=== PATIENT | female | born 1935 | race Caucasian/White ===

== ENCOUNTER 2016-08-11 10:47 | Emergency (ER) | payer MEDICARE, BC ==
--- NOTE | ~2016-08-11 | ER ---
PATIENT'S NAME: RUBI OLSON [facility] AGE: 80 Y [address] ROOM: [place] [address] LOCATION: [facility] ADMIT DATE: 08/11/2016 ER/Outpatient Report DISCHARGE DATE: 08/11/2016 FAMILY PHYSICIAN: Kelly Fung MD ATTENDING PHYSICIAN: Carloz De Luna Time of arrival: 1047 hours. Time of Evaluation: 1049 hours. CHIEF COMPLAINT: Right arm pain. HISTORY OF PRESENT ILLNESS: The patient is a 80-year-old female who presents to the emergency department today with a chief complaint of right arm pain. She reports this occurred just prior to arrival about 25 minutes ago. She reports she tripped while walking on her deck and fell backwards and caught herself on her right outstretched arm. She heard a pop. She has mild sharp pain, which is worse with movement. She is unsure whether she had a head injury. She denies any loss of consciousness though. Denies any headache. No nausea or vomiting. No neck pain. PAST MEDICAL HISTORY: None. PAST SURGICAL HISTORY: Bilateral knee, back. SOCIAL HISTORY: The patient denies any tobacco use. Reports occasional alcohol use. Denies any illicit drug use. ALLERGIES: NO KNOWN DRUG ALLERGIES. MEDICATIONS: Flonase. PRIMARY CARE DOCTOR: Dr. Gifford. ORTHOPEDIC SURGEON: Dr. Peace. REVIEW OF SYSTEMS: PATIENT'S NAME: RUBI OLSON [facility] AGE: 80 Y [address] ROOM: [place] [address] LOCATION: [facility] ADMIT DATE: 08/11/2016 ER/Outpatient Report DISCHARGE DATE: 08/11/2016 FAMILY PHYSICIAN: Kelly Fung MD ATTENDING PHYSICIAN: Carloz De Luna All systems are reviewed by myself and negative with the exception of those discussed in HPI and past medical history. PHYSICAL EXAMINATION: VITAL SIGNS: Weight 78.7 kg, blood pressure 171/79, pulse 74, respiratory rate 22, temperature 97.9, oxygen saturation 100% on room air. GENERAL: The patient is a 80-year-old female, appears stated age, in obvious acute distress secondary to pain in her right wrist. HEENT: Head normocephalic, atraumatic. Pupils are equal, round, and reactive to light and accommodation. Extraocular motions are intact. Nares are patent bilaterally. TMs are clear. No hemotympanum. No Castro sign. No raccoon eyes. Oropharynx is clear. There are no lacerations noted. NECK: Supple. There is no nuchal rigidity. No midline tenderness to palpation. No step-offs or deformities. CARDIOVASCULAR: Regular rate and rhythm. No murmurs, rubs, or gallops. LUNGS: Clear to auscultation bilaterally. No wheezes, rales, or rhonchi. ABDOMEN: Soft, nontender, and nondistended. No rebound, rigidity, or guarding. MUSCULOSKELETAL: The patient moves all 4 extremities. The patient has decreased range of motion right wrist with obvious deformity noted. She does have 2/4 pulse radially in the right wrist. She does have dinner fork type deformity. Sensation is intact. Motor is intact in fingers. SKIN: Warm and dry. LABORATORY DATA AND X-RAYS: X-ray of the right wrist is obtained. X-ray does reveal an impacted Colles fracture of the distal radius. IMPRESSION: 1. Acute closed impacted Colles fracture of the right arm. 2. Status post moderate sedation with closed reduction. 3. Initial visit. EMERGENCY DEPARTMENT COURSE: The patient was brought back to the examination room. Seen and evaluated by myself. IV is established. Imaging is obtained as described above. The patient is given Dilaudid 0.25 mg IV x2 for pain. Consent is obtained both verbal and written for closed reduction with moderate sedation of the right wrist. Risks and benefits are discussed. The patient does wish to proceed. The patient is set up for conscious sedation as normally provided including IV monitoring and O2. The patient was given 80 mg of ketamine IV with good sedation. The right wrist was reduced with accentuation of the fracture and traction. A sugar-tong splint was placed by myself. This was well-padded. The patient's cap refill remains intact. There were no complications with the procedure. The patient was placed in a sling. Post reduction, a film was PATIENT'S NAME: RUBI OLSON [facility] AGE: 80 Y [address] ROOM: [place] [address] LOCATION: [facility] ADMIT DATE: 08/11/2016 ER/Outpatient Report DISCHARGE DATE: 08/11/2016 FAMILY PHYSICIAN: Kelly Fung MD ATTENDING PHYSICIAN: Carloz De Luna obtained with improved alignment of the patient's wrist. I have discussed the case with Dr. Peace who was requested by the patient. He will follow up with the patient on August 16 in the morning. I have written a prescription for [place] with sedation warning. I have discussed head injury precautions with the patient and the family. I have discussed return to care instructions including worsening symptoms, nausea, vomiting, lethargy, or other concerns to return immediately to the emergency department. They are agreeable without further questions. DISPOSITION: The patient is discharged home in good condition. CARLOZ DE LUNA DO KJR/modl /[id number] d: 08/11/16 2155 t: 08/13/16 0708, OUTPATIENT REPORT
[~2016-08-11 10:47] MED LIST changes: -BIOTIN1000 MCG PO; -GLUCOSAMINE CH1 EAC3 PO; -NORCO 5-325 TA1 EACH PO; -SYSTANE BALANCE10 ML OPHTH; -ULTRAM50 MG PO
[2016-08-16] MEDS ORDERED: BIOTIN1000 MCG PO (11:39)
[2016-08-16] MEDS ORDERED: GLUCOSAMINE CH1 EAC3 PO (11:40)
[2016-08-16] MEDS ORDERED: SUPHEDRINE PE10 MG PO (11:41)
[2016-08-16] MEDS ORDERED: SYSTANE BALANCE10 ML OPHTH (11:42)
[2016-08-16] MEDS ORDERED: NORCO 5-325 TA1 EACH PO (14:15)
[2016-08-16] MEDS ORDERED: ULTRAM50 MG PO (14:16)
== END 2016-08-11 14:02 | disposition disaster alternative care site (69) ==
LOC: GACC 10:47
PROC: 0PSHXZZ Reposition Right Radius, External Approach (ICD-10-PCS; principal; 2016-08-11)
DX: S52.531A Colles' fracture of right radius, initial encounter for closed fracture (principal); Z98.890 Other specified postprocedural states; Z79.82 Long term (current) use of aspirin; Z79.899 Other long term (current) drug therapy; W01.0XXA Fall on same level from slipping, tripping and stumbling without subsequent striking against object, initial encounter
CPT/HCPCS: J1170; J7030

== ENCOUNTER → 2016-08-11 | Outpatient (CLI) | payer MEDICARE, BC ==
[~2016-08-11] MED LIST: ALEVE220 MG PO; ASPIRIN EC81 MG PO; BIOTIN1000 MCG PO; BIOTIN800 MCG PO; CALCIUM 600 +1 EAC3 PO; COLACE100 MG PO; DILAUDID 2MG(HYD2 MG PO; DILAUDID2 MG PO; FLEXERIL10 MG PO; FLONASE 50 MCG/16 GM NOSE; FOSAMAX70 MG PO; GLUCOSAMINE CH1 EAC3 PO; LUBRICANT EYE D10 ML OPHTH; MIRALAX17 GM PO; MULTI VITAMIN1 EACH PO; NORCO 5-325 MG1 TAB PO; NORCO 5-325 TA1 EACH PO; OSTEO BI-FLEX1 EAC1 PO; PEPCID20 MG PO; PROLIA60 MG/ML IM; SUPHEDRINE PE10 MG PO; SYSTANE BALANCE10 ML OPHTH; TYLENOL EXTRA500 MG PO; ULTRAM50 MG PO; VALIUM5 MG PO; XARELTO10 MG PO; ZINC50 M1 PO
== END | disposition disaster alternative care site (69) ==
LOC: GAMB 10:25
DX: M21.931 Unspecified acquired deformity of right forearm (principal); M79.89 Other specified soft tissue disorders; M25.531 Pain in right wrist; M79.601 Pain in right arm; Z96.653 Presence of artificial knee joint, bilateral; Z79.899 Other long term (current) drug therapy
CPT/HCPCS: A0425; A0427; J2405; J3010

== ENCOUNTER → 2016-08-16 | Day surgery (SDC) | payer MEDICARE, BC ==
[~2016-08-16] VITALS: Ht 165.1 cm; Wt 76.3 kg
[~2016-08-16] MED LIST changes: +BIOTIN1000 MCG PO; +GLUCOSAMINE CH1 EAC3 PO; +NORCO 5-325 TA1 EACH PO; +SYSTANE BALANCE10 ML OPHTH; +ULTRAM50 MG PO
--- NOTE | ~2016-08-16 | OR ---
PATIENT'S NAME: RUBI OLSON [facility] AGE: 80 Y [address] ROOM: [place] [address] [place] [facility] [place] DATE: 08/16/2016 OR/Procedure Report DISCHARGE DATE: FAMILY PHYSICIAN: Kelly Fung MD ATTENDING PHYSICIAN: COLTON FROST SURGEON: Colton Frost MD CHILDREN'S ATTENDANT: Sergio Keene, HOISTING ENGINEER/POSTPARTUM NURSE. DATE OF PROCEDURE: 08/16/2016 PREOPERATIVE DIAGNOSIS: Right distal radius fracture. POSTOPERATIVE DIAGNOSIS: Right distal radius fracture. PROCEDURE PERFORMED: Closed reduction of right distal radius fracture with application of sugar-tong splint. ANESTHESIA: Propofol. COMPLICATIONS: None. INDICATION FOR PROCEDURE: Please refer to my separately dictated clinic note from today. Informed consent granted. The patient and her family members understand that repeat reduction (and potential internal fixation) may be necessary if satisfactory alignment cannot be achieved and/or maintained. DESCRIPTION OF PROCEDURE: Propofol anesthesia was administered with the patient positioned supine in the preoperative holding area. The sugar-tong splint was removed from the right upper extremity. Skin is intact throughout the right upper extremity. There was moderate swelling at the right wrist. Radial pulse 2+. There was no swelling or deformity at the forearm or elbow. The fracture was reduced via slight hyperextension and radial deviation at the fracture site followed by longitudinal traction followed by volar translation of the distal fragment combined with volar flexion and ulnar translation. Postreduction radiographs demonstrated voodoo of approximately 10 degrees of volar tilt and 20 degrees of inclination. There was no articular incongruity. There was approximately 2 mm of residual radial translation of the distal fragment relative to the proximal fragment. The distal radial ulnar joint demonstrated no widening. The distal ulna was intact. A well-padded well-molded sugar-tong splint was applied with the wrist volar flexed and ulnarly deviated. The splint was allowed to harden after which repeat AP, lateral, and oblique radiographs of the wrist demonstrated maintenance of excellent alignment. Specifically, there was no residual apex volar angulation or dorsal translation of the distal fragment. PATIENT'S NAME: RUBI OLSON [facility] AGE: 80 Y [address] ROOM: [place] [address] [place] [facility] [place] DATE: 08/16/2016 OR/Procedure Report DISCHARGE DATE: FAMILY PHYSICIAN: Kelly Fung MD ATTENDING PHYSICIAN: COLTON FROST Postoperative Plan: 1. She will remain in the sugar-tong splint for 2 weeks. 2. Repeat radiographs will be obtained through the splint next week. 3. Sling full-time. 4. I have asked to be contacted if analgesia is inadequate and/or if she develops numbness or paresthesias. MD GURJIT AYERS/marcus /[id number] d: 08/17/16 0036 t: 08/20/16 214, OPERATIVE SUMMARY
[2016-08-16 14:39] LABS: BASOPHIL % 0.7 %; EOSINOPHIL # 0.2 K/uL (0.0-0.5); EOSINOPHIL % 3.7 %; IMMATURE GRANULOCYTE % 0.2 %; LYMPHOCYTE % 34.4 %; MCH 32.8 pg (27.0-34.0); MCHC 34.2 gm/dL (32.0-36.5); MONOCYTE # 0.5 K/uL (0.0-1.0); MONOCYTE % 8.6 %; MPV 9.8 fl (9.4-12.4); NEUTROPHIL # (ANC) 3.1 K/uL (1.8-7.8); NEUTROPHIL % 52.4 %; NRBC % 0 /100WBC (0-0.00); PLATELET COUNT 218 K/uL (150-450); RBC 3.96 M/uL (3.50-5.50); RDW-CV 13.9 % (11.9-14.6); WBC 5.9 K/uL (4.0-11.0)
== END | disposition disaster alternative care site (69) ==
LOC: GPOC 11:00 → GSDC 13:29
PROVIDERS: Orthopaedic Surgery
PROC: 0PSHXZZ Reposition Right Radius, External Approach (ICD-10-PCS; principal; 2016-08-16)
DX: S52.531A Colles' fracture of right radius, initial encounter for closed fracture (principal); M19.90 Unspecified osteoarthritis, unspecified site; M81.0 Age-related osteoporosis without current pathological fracture; K21.9 Gastro-esophageal reflux disease without esophagitis; Z85.828 Personal history of other malignant neoplasm of skin; Z98.41 Cataract extraction status, right eye; Z98.42 Cataract extraction status, left eye; Z98.890 Other specified postprocedural states; Z90.710 Acquired absence of both cervix and uterus; Z79.82 Long term (current) use of aspirin; Z79.891 Long term (current) use of opiate analgesic; Z79.899 Other long term (current) drug therapy; W01.0XXA Fall on same level from slipping, tripping and stumbling without subsequent striking against object, initial encounter
CPT/HCPCS: J2001; J7120